=== PATIENT | female | born 1990 ===

== ENCOUNTER 2017-04-08 16:55 | Emergency (ER) | payer OTHER ==
[~2017-04-08] VITALS: Ht 170.2 cm; Wt 78.5 kg
[~2017-04-08 16:55] MED LIST: NORFLEX100MG PO; PEPCID40 MG PO; ZOFRAN4 MG PO
[2017-04-08] MEDS ORDERED: ORPHENADRINE C100 MG PO (17:44)
[2017-04-08] MEDS ORDERED: KETOROLAC TROME10 MG PO (17:44)
== END 2017-04-08 18:47 | disposition home or self-care (01) ==
LOC: ER 16:55
DX: S83.8X2A Sprain of other specified parts of left knee, initial encounter (principal); W11.XXXA Fall on and from ladder, initial encounter; Y93.89 Activity, other specified; Y92.098 Other place in other non-institutional residence as the place of occurrence of the external cause; Y99.8 Other external cause status